=== PATIENT | male | born 1980 | race Caucasian/White ===

== ENCOUNTER 2021-05-30 23:33 | Inpatient (IN) ==
[2021-05-31] MEDS ORDERED: Aspirin 325 MG TABLET PO STA (00:22)
[2021-05-31 00:42] LABS: Hematocrit 30.7 % (37.5-50.1); Hemoglobin 10.1 g/dL (12.9-16.9); Immature Granulocytes % 0.5 % (0-4); Lymphocytes % 4.4 %; Mean Corpuscular HGB Conc 32.9 g/dL (31.6-35.5); Mean Corpuscular Hemoglobin 31.3 pg (28.0-33.3); Mean Platelet Volume 12.1 fL (9.4-12.4); Monocytes % 5.7 %; Platelet Count 184 K/mcL (140-400); Red Blood Count 3.23 M/mcL (4.19-5.50); Red Cell Distribution Width 13.2 % (11.5-14.5); Segmented Neutrophils % 83.2 %
[2021-05-31 00:43] LABS: Basophils % 0.3 %; Eosinophils # 0.7 K/mcL (0.0-0.6); Eosinophils % 5.9 %; Lymphocytes # 0.5 K/mcL (0.6-4.6); Monocytes # 0.7 K/mcL (0.0-1.3)
[2021-05-31 00:54] LABS: Calcium 8.4 mg/dL (8.6-10.3); Potassium 4.1 mEq/L (3.5-5.1)
[2021-05-31 00:56] LABS: Troponin I 0.03 ng/mL (< 0.04)
[2021-05-31] MEDS ORDERED: 0.9 % Sodium Chloride 1,000 ML IVC ONE (00:59)
[2021-05-31 01:00] LABS: D-Dimer 2305 ng/mLFEU (0-500)
[2021-05-31 01:15] LABS: Influenza A PCR Negative (Negative); Influenza B PCR Negative (Negative); Resp. Syncytial Virus PCR Negative (Negative)
[2021-05-31 01:16] LABS: SARS-CoV-2 by PCR (In House) Negative (Negative)
[2021-05-31] MEDS ORDERED: *HR* Heparin 5,000 UNIT/ML VIAL IVP PRN ×2 (01:17)
[2021-05-31] MEDS ORDERED: *HR* Heparin 5,000 UNIT/ML VIAL IVP ONE (01:17)
[2021-05-31 01:21] LABS: Bilirubin,Urine Negative (Negative); Blood,Urine Small (Negative); Clarity,Urine Clear (Clear); Color,Urine Light-Yellow (Yellow); Glucose,Urine (UA) Normal (Normal); Ketones,Urine Negative (Negative); Leukocyte Esterase,Urine Moderate (Negative); Nitrite,Urine Negative (Negative); Protein,Urine 100 mg/dL (Neg-Trace); RBC,Urine 0-3 per hpf (0-3); Specific Gravity,Urine 1.011 (1.010-1.025); Squamous Epithelial Cell,Urine Few per hpf (None-Few); Urobilinogen,Urine Normal (Normal); WBC,Urine 15-30 per hpf (0-3)
[2021-05-31] MEDS: Heparin 25,000UNIT/250ML 1/2NS 25,000 UNIT/250 ML IV.SOLN IVC SCH ×2 (01:58→15:41)
[2021-05-31 02:31] LABS: INR 1.1; Prothrombin Time 13.1 Seconds (9.4-12.1)
[2021-05-31 02:33] LABS: Heparin anti-factor XA UFH < 0.04 IU/mL (0.30-0.70)
[2021-05-31] MEDS ORDERED: Acetaminophen 325 MG TABLET PO PRN (03:00)
[2021-05-31] MEDS ORDERED: Ondansetron 4 MG/2 ML VIAL IVP PRN (03:00)
[2021-05-31] MEDS ORDERED: Naloxone 0.4 MG/ML INJ IVP PRN (03:00)
[2021-05-31] MEDS ORDERED: Melatonin 3 MG TABLET PO PRN (03:00)
[2021-05-31] MEDS ORDERED: *HR* HYDROcodone/Acet 5/325 mg TABLET PO PRN (03:00)
[2021-05-31] MEDS ORDERED: Perflutren Lipid Microsphere 1.3 ML in 0.9 % Sodium Chloride 8.7 ML IVP PRN (04:14)
[2021-05-31 04:49] LABS: Protein/Creatinine Ratio,Urine 1.38 mg/mg (0.00-0.20)
[2021-05-31] MEDS: Ringers Solution, Lactated 1,000 ML IVC SCH ×2 (05:04→14:02)
[2021-05-31 09:17] LABS: Basophils % 0.4 %; Eosinophils % 10.6 %; Hematocrit 28.4 % (37.5-50.1); Immature Granulocytes % 0.4 % (0-4); Lymphocytes # 1.1 K/mcL (0.6-4.6); Lymphocytes % 11.4 %; Mean Corpuscular HGB Conc 31.7 g/dL (31.6-35.5); Mean Corpuscular Hemoglobin 30.6 pg (28.0-33.3); Mean Corpuscular Volume 96.6 fL (83.0-100.0); Mean Platelet Volume 11.7 fL (9.4-12.4); Monocytes # 0.7 K/mcL (0.0-1.3); Monocytes % 7.3 %; Neutrophils # 6.7 K/mcL (1.6-8.9); Platelet Count 158 K/mcL (140-400); Red Blood Count 2.94 M/mcL (4.19-5.50); Red Cell Distribution Width 13.2 % (11.5-14.5); Segmented Neutrophils % 69.9 %; White Blood Count 9.6 K/mcL (4.3-11.1)
[2021-05-31 09:24] LABS: Heparin anti-factor XA UFH 0.72 IU/mL (0.30-0.70); INR 1.3; Prothrombin Time 14.4 Seconds (9.4-12.1)
[2021-05-31 09:41] LABS: Calcium 8.4 mg/dL (8.6-10.3); Magnesium 1.7 mg/dL (1.6-2.6); Potassium 3.9 mEq/L (3.5-5.1)
[2021-05-31 09:58] LABS: Estimated Average Glucose 114 mg/dl; Hemoglobin A1C 5.6 %
[2021-05-31] MEDS ORDERED: Sodium Bicarbonate 75 MEQ in 0.45 % Sodium Chloride 1,000 ML IVC SCH (12:00)
[2021-05-31] MEDS: amLODIPine 5 MG TABLET PO SCH (14:27)
[2021-05-31] MEDS: Sodium Bicarbonate 75 MEQ in 0.45 % Sodium Chloride 1,000 ML IVC SCH (16:04)
[2021-05-31 16:59] LABS: Complement C3 127 mg/dL (87-200); Vitamin D 25 Hydroxy 16 ng/mL (30-80)
[2021-05-31 17:36] LABS: VBG Ionized Calcium 1.06 mmol/L (1.15-1.35)
[2021-05-31] MEDS: Cholecalciferol (D-3) 1,000 UNIT (25MCG) TABLET PO SCH (17:40)
[2021-05-31 17:44] LABS: Rheumatoid Factor < 10 IU/mL (Less than 14)
[2021-06-01] MEDS: Sodium Bicarbonate 75 MEQ in 0.45 % Sodium Chloride 1,000 ML IVC SCH ×3 (00:41→21:33)
[2021-06-01 01:19] LABS: Hematocrit 28.1 % (37.5-50.1); Mean Corpuscular Hemoglobin 30.5 pg (28.0-33.3); Mean Corpuscular Volume 95.3 fL (83.0-100.0); Mean Platelet Volume 11.9 fL (9.4-12.4); Platelet Count 146 K/mcL (140-400); Red Blood Count 2.95 M/mcL (4.19-5.50); Red Cell Distribution Width 13.3 % (11.5-14.5); White Blood Count 8.4 K/mcL (4.3-11.1)
[2021-06-01 01:31] LABS: Calcium 8.4 mg/dL (8.6-10.3)
[2021-06-01 04:19] LABS: Uric Acid 9.4 mg/dL (2.3-7.6)
[2021-06-01] MEDS: Heparin 25,000UNIT/250ML 1/2NS 25,000 UNIT/250 ML IV.SOLN IVC SCH ×2 (07:37→23:34)
[2021-06-01] MEDS: Cholecalciferol (D-3) 1,000 UNIT (25MCG) TABLET PO SCH (07:37)
[2021-06-01] MEDS: amLODIPine 5 MG TABLET PO SCH (07:38)
[2021-06-01] MEDS ORDERED: Ergocalciferol (VIT D2) 50,000 UNIT (1.25MG) CAP PO SCH (10:30)
[2021-06-01] MEDS: calcitrioL 0.25 MCG CAPSULE PO SCH (13:24)
[2021-06-01 14:15] LABS: Phosphorous 7.4 mg/dL (2.7-4.5)
[2021-06-02 02:13] LABS: Hematocrit 27.2 % (37.5-50.1); Hemoglobin 8.9 g/dL (12.9-16.9); Mean Corpuscular HGB Conc 32.7 g/dL (31.6-35.5); Mean Corpuscular Hemoglobin 30.8 pg (28.0-33.3); Mean Corpuscular Volume 94.1 fL (83.0-100.0); Mean Platelet Volume 11.8 fL (9.4-12.4); Platelet Count 158 K/mcL (140-400); Red Blood Count 2.89 M/mcL (4.19-5.50); White Blood Count 8.4 K/mcL (4.3-11.1)
[2021-06-02 02:34] LABS: Potassium 3.7 mEq/L (3.5-5.1)
[2021-06-02] MEDS: calcitrioL 0.25 MCG CAPSULE PO SCH (08:13)
[2021-06-02] MEDS: Cholecalciferol (D-3) 1,000 UNIT (25MCG) TABLET PO SCH (08:13)
[2021-06-02] MEDS: amLODIPine 5 MG TABLET PO SCH (08:13)
[2021-06-02] MEDS: Heparin 25,000UNIT/250ML 1/2NS 25,000 UNIT/250 ML IV.SOLN IVC SCH (12:32)
[2021-06-02] MEDS ORDERED: *HR* Warfarin 5 MG TABLET PO ONE (18:00)
[2021-06-02] MEDS ORDERED: Warfarin perPT PO PRN (18:00)
[2021-06-02 19:06] LABS: Heparin anti-factor XA UFH 0.38 IU/mL (0.30-0.70)
[2021-06-02 19:07] LABS: INR 1.2; Prothrombin Time 13.8 Seconds (9.4-12.1)
[2021-06-03] MEDS: Heparin 25,000UNIT/250ML 1/2NS 25,000 UNIT/250 ML IV.SOLN IVC SCH ×2 (02:19→15:08)
[2021-06-03 07:50] LABS: Hematocrit 28.7 % (37.5-50.1); Mean Corpuscular HGB Conc 31.4 g/dL (31.6-35.5); Mean Corpuscular Hemoglobin 30.2 pg (28.0-33.3); Mean Corpuscular Volume 96.3 fL (83.0-100.0); Mean Platelet Volume 11.7 fL (9.4-12.4); Platelet Count 165 K/mcL (140-400); Red Blood Count 2.98 M/mcL (4.19-5.50); White Blood Count 8.8 K/mcL (4.3-11.1)
[2021-06-03] MEDS: calcitrioL 0.25 MCG CAPSULE PO SCH (07:56)
[2021-06-03] MEDS: amLODIPine 5 MG TABLET PO SCH (07:56)
[2021-06-03] MEDS: Cholecalciferol (D-3) 1,000 UNIT (25MCG) TABLET PO SCH (07:57)
[2021-06-03 07:58] LABS: INR 1.2
[2021-06-03 07:59] LABS: Calcium 8.5 mg/dL (8.6-10.3); Potassium 3.7 mEq/L (3.5-5.1)
[2021-06-03 11:27] LABS: ANA IgG by ELISA NONE DETECTED (None Detected)
[2021-06-03 22:05] LABS: ANCA IFA Titer <1:20 (<1:20)
[2021-06-04 01:13] LABS: Hematocrit 27.6 % (37.5-50.1); Hemoglobin 8.9 g/dL (12.9-16.9); Mean Corpuscular HGB Conc 32.2 g/dL (31.6-35.5); Mean Corpuscular Hemoglobin 30.4 pg (28.0-33.3); Mean Corpuscular Volume 94.2 fL (83.0-100.0); Mean Platelet Volume 11.6 fL (9.4-12.4); Platelet Count 179 K/mcL (140-400); Red Blood Count 2.93 M/mcL (4.19-5.50); Red Cell Distribution Width 12.9 % (11.5-14.5); White Blood Count 10.3 K/mcL (4.3-11.1)
[2021-06-04 01:21] LABS: INR 1.2; Prothrombin Time 13.8 Seconds (9.4-12.1)
[2021-06-04 01:32] LABS: Calcium 8.4 mg/dL (8.6-10.3); Potassium 3.6 mEq/L (3.5-5.1)
[2021-06-04 03:00] LABS: Beta Globulin (PEP) 0.73 g/dL (0.48-1.10)
[2021-06-04] MEDS: Heparin 25,000UNIT/250ML 1/2NS 25,000 UNIT/250 ML IV.SOLN IVC SCH ×2 (03:06→18:12)
[2021-06-04] MEDS ORDERED: *HR* Rocuronium Bromide 50 MG/5 ML VIAL ONE (07:11)
[2021-06-04] MEDS ORDERED: *HR* Succinylcholine 200 MG/10 ML VIAL IVP ONE (07:11)
[2021-06-04] MEDS ORDERED: Lidocaine -MPF 2% 2 ML VIAL ONE (07:11)
[2021-06-04] MEDS ORDERED: Ondansetron 4 MG/2 ML VIAL ONE (07:11)
[2021-06-04] MEDS ORDERED: *HR* Propofol 200 MG/20 ML VIAL IVP ONE (07:11)
[2021-06-04] MEDS ORDERED: *HR* FentaNYL (PF) 100 MCG/2 ML VIAL ONE ×2 (07:11→08:43)
[2021-06-04] MEDS ORDERED: Lidocaine -MPF 4% 5 ML AMPUL ONE (07:13)
[2021-06-04] MEDS ORDERED: Acetaminophen IV 1,000 MG/100 ML BAG IVPB ONE (07:27)
[2021-06-04] MEDS ORDERED: ceFAZolin 1,000 MG in Water for inj. (sterile) 10 ML IVP ONE (07:33)
[2021-06-04] MEDS ORDERED: Acetaminophen IV 1,000 MG/100 ML BAG IVPB PRN (07:36)
[2021-06-04] MEDS ORDERED: Ondansetron 4 MG/2 ML VIAL IVP PRN ×2 (07:36→10:25)
[2021-06-04] MEDS ORDERED: *HR* FentaNYL (PF) 100 MCG/2 ML VIAL IVP PRN (07:36)
[2021-06-04] MEDS ORDERED: Heparin 1,000 UNITS/500 mL 500 ML ONE (07:44)
[2021-06-04 09:22] LABS: ANCA IFA Pattern NONE DETECTED (None Detected); Serine Protease-3 Antibody 6 AU/mL (0-19)
[2021-06-04] MEDS ORDERED: Acetaminophen 325 MG TABLET PO PRN (10:25)
[2021-06-04] MEDS ORDERED: *HR* HYDROcodone/Acet 5/325 mg TABLET PO PRN (10:25)
[2021-06-04] MEDS ORDERED: Melatonin 3 MG TABLET PO PRN (10:25)
[2021-06-04] MEDS ORDERED: *HR* Heparin 5,000 UNIT/ML VIAL IVP PRN ×5 (10:25→18:00)
[2021-06-04] MEDS ORDERED: Naloxone 0.4 MG/ML INJ IVP PRN (10:25)
[2021-06-04 11:28] LABS: IFE Reflexed NOT DONE
[2021-06-04 11:59] LABS: Hematocrit 28.4 % (37.5-50.1); Mean Corpuscular HGB Conc 31.7 g/dL (31.6-35.5); Mean Corpuscular Volume 94.7 fL (83.0-100.0); Mean Platelet Volume 11.6 fL (9.4-12.4); Platelet Count 167 K/mcL (140-400); Red Cell Distribution Width 12.9 % (11.5-14.5); White Blood Count 12.4 K/mcL (4.3-11.1)
[2021-06-04 12:08] LABS: Heparin anti-factor XA UFH < 0.04 IU/mL (0.30-0.70)
[2021-06-04 12:09] LABS: INR 1.2; Prothrombin Time 13.6 Seconds (9.4-12.1)
[2021-06-04] MEDS ORDERED: Heparin 25,000UNIT/250ML 1/2NS 25,000 UNIT/250 ML IV.SOLN IVC SCH (18:00)
[2021-06-05 01:24] LABS: INR 1.2; Prothrombin Time 13.9 Seconds (9.4-12.1)
[2021-06-05] MEDS: Heparin 25,000UNIT/250ML 1/2NS 25,000 UNIT/250 ML IV.SOLN IVC SCH ×2 (06:39→19:31)
[2021-06-05 08:05] LABS: Hematocrit 26.3 % (37.5-50.1); Hemoglobin 8.6 g/dL (12.9-16.9); Mean Corpuscular HGB Conc 32.7 g/dL (31.6-35.5); Mean Corpuscular Hemoglobin 30.9 pg (28.0-33.3); Mean Corpuscular Volume 94.6 fL (83.0-100.0); Mean Platelet Volume 11.6 fL (9.4-12.4); Platelet Count 183 K/mcL (140-400); Red Blood Count 2.78 M/mcL (4.19-5.50); Red Cell Distribution Width 12.6 % (11.5-14.5); White Blood Count 16.9 K/mcL (4.3-11.1)
[2021-06-05 08:23] LABS: Potassium 3.9 mEq/L (3.5-5.1)
[2021-06-05] MEDS: Cholecalciferol (D-3) 1,000 UNIT (25MCG) TABLET PO SCH (09:15)
[2021-06-05] MEDS: amLODIPine 5 MG TABLET PO SCH (09:15)
[2021-06-05] MEDS: calcitrioL 0.25 MCG CAPSULE PO SCH (09:15)
[2021-06-05 15:00] LABS: Bacteria,Urine Few per hpf (None-Few); Bilirubin,Urine Negative (Negative); Blood,Urine Trace (Negative); Clarity,Urine Clear (Clear); Color,Urine Colorless (Yellow); Glucose,Urine (UA) Normal (Normal); Ketones,Urine Negative (Negative); Leukocyte Esterase,Urine Negative (Negative); Nitrite,Urine Negative (Negative); PH,Urine 6.5 pH Units (5.0-8.0); Protein,Urine 70 mg/dL (Neg-Trace); RBC,Urine 0-3 per hpf (0-3); Specific Gravity,Urine 1.009 (1.010-1.025); Squamous Epithelial Cell,Urine Few per hpf (None-Few); Urobilinogen,Urine Normal (Normal)
[2021-06-05] MEDS ORDERED: Warfarin perPT PO PRN (18:00)
[2021-06-05] MEDS ORDERED: *HR* Warfarin 5 MG TABLET PO ONE (18:00)
[2021-06-05] MEDS: *HR* HYDROcodone/Acet 5/325 mg TABLET PO PRN (19:31)
[2021-06-06 03:44] LABS: Basophils % 0.3 %; Eosinophils # 0.3 K/mcL (0.0-0.6); Eosinophils % 2.4 %; Hemoglobin 8.6 g/dL (12.9-16.9); Immature Granulocytes % 0.5 % (0-4); Lymphocytes # 1.4 K/mcL (0.6-4.6); Lymphocytes % 11.2 %; Mean Corpuscular HGB Conc 31.9 g/dL (31.6-35.5); Mean Corpuscular Hemoglobin 30.3 pg (28.0-33.3); Mean Corpuscular Volume 95.1 fL (83.0-100.0); Mean Platelet Volume 12.3 fL (9.4-12.4); Monocytes # 1.2 K/mcL (0.0-1.3); Neutrophils # 9.2 K/mcL (1.6-8.9); Platelet Count 164 K/mcL (140-400); Red Blood Count 2.84 M/mcL (4.19-5.50); Segmented Neutrophils % 75.6 %; White Blood Count 12.1 K/mcL (4.3-11.1)
[2021-06-06 03:53] LABS: INR 1.1; Prothrombin Time 13.2 Seconds (9.4-12.1)
[2021-06-06 04:19] LABS: Calcium 8.5 mg/dL (8.6-10.3); Potassium 3.9 mEq/L (3.5-5.1)
[2021-06-06] MEDS: Heparin 25,000UNIT/250ML 1/2NS 25,000 UNIT/250 ML IV.SOLN IVC SCH ×2 (06:39→20:10)
[2021-06-06] MEDS ORDERED: Ergocalciferol (VIT D2) 50,000 UNIT (1.25MG) CAP PO SCH (09:00)
[2021-06-06] MEDS: amLODIPine 5 MG TABLET PO SCH ×2 (10:31→19:45)
[2021-06-06] MEDS: calcitrioL 0.25 MCG CAPSULE PO SCH ×2 (10:31→19:45)
[2021-06-06] MEDS: Cholecalciferol (D-3) 1,000 UNIT (25MCG) TABLET PO SCH ×2 (10:32→19:45)
[2021-06-06] MEDS: *HR* HYDROcodone/Acet 5/325 mg TABLET PO PRN ×2 (10:37→19:08)
[2021-06-06 15:21] LABS: Hepatitis B Surface Antibody < 3.10 mIU/mL
[2021-06-06 15:32] LABS: Hepatitis B Surface Antigen Nonreactive (Nonreactive)
[2021-06-06 16:01] LABS: Hepatitis B Core IgM Nonreactive (Nonreactive)
[2021-06-06] MEDS ORDERED: *HR* Warfarin 5 MG TABLET PO ONE (18:00)
[2021-06-07 07:46] LABS: Hematocrit 27.1 % (37.5-50.1); Hemoglobin 8.7 g/dL (12.9-16.9); Mean Corpuscular HGB Conc 32.1 g/dL (31.6-35.5); Mean Corpuscular Hemoglobin 30.6 pg (28.0-33.3); Mean Corpuscular Volume 95.4 fL (83.0-100.0); Mean Platelet Volume 11.9 fL (9.4-12.4); Platelet Count 173 K/mcL (140-400); Red Blood Count 2.84 M/mcL (4.19-5.50); Red Cell Distribution Width 13.1 % (11.5-14.5)
[2021-06-07 07:54] LABS: INR 1.6; Prothrombin Time 17.9 Seconds (9.4-12.1)
[2021-06-07 07:59] LABS: Potassium 3.8 mEq/L (3.5-5.1)
[2021-06-07] MEDS: amLODIPine 5 MG TABLET PO SCH (08:56)
[2021-06-07] MEDS: calcitrioL 0.25 MCG CAPSULE PO SCH (08:57)
[2021-06-07] MEDS: Cholecalciferol (D-3) 1,000 UNIT (25MCG) TABLET PO SCH (08:57)
[2021-06-07] MEDS: Heparin 25,000UNIT/250ML 1/2NS 25,000 UNIT/250 ML IV.SOLN IVC SCH ×2 (09:04→23:04)
[2021-06-07] MEDS: *HR* HYDROcodone/Acet 5/325 mg TABLET PO PRN (12:54)
[2021-06-07] MEDS ORDERED: *HR* Warfarin 5 MG TABLET PO ONE (18:00)
[2021-06-08 03:25] VITALS: PULSE 85
[2021-06-08 06:05] LABS: Hematocrit 28.2 % (37.5-50.1); Hemoglobin 8.9 g/dL (12.9-16.9); Mean Corpuscular HGB Conc 31.6 g/dL (31.6-35.5); Mean Corpuscular Hemoglobin 30.3 pg (28.0-33.3); Mean Corpuscular Volume 95.9 fL (83.0-100.0); Mean Platelet Volume 11.8 fL (9.4-12.4); Platelet Count 183 K/mcL (140-400); Red Blood Count 2.94 M/mcL (4.19-5.50); Red Cell Distribution Width 13.2 % (11.5-14.5); White Blood Count 8.3 K/mcL (4.3-11.1)
[2021-06-08 06:17] LABS: INR 2.1; Prothrombin Time 24.3 Seconds (9.4-12.1)
[2021-06-08 06:29] LABS: Potassium 3.8 mEq/L (3.5-5.1)
[2021-06-08 07:28] VITALS: BP 156/91; TEMP 97.7; O2SAT 94
[2021-06-08] MEDS: amLODIPine 5 MG TABLET PO SCH (08:28)
[2021-06-08] MEDS: calcitrioL 0.25 MCG CAPSULE PO SCH (08:28)
[2021-06-08] MEDS: Cholecalciferol (D-3) 1,000 UNIT (25MCG) TABLET PO SCH (08:28)
[2021-06-08] MEDS: Heparin 25,000UNIT/250ML 1/2NS 25,000 UNIT/250 ML IV.SOLN IVC SCH (11:52)
== END 2021-06-08 13:06 | disposition home or self-care (01) | DRG 673 ==
LOC: EMEROOARM 23:33 → CDU 23:33 → SUATTDRO 05-31 15:59 → 3BNU 06-04 10:03
PROVIDERS: ADMIT Internal Medicine; ATTEND Family Medicine